=== PATIENT | female | born 1960 | race Caucasian/White ===

== ENCOUNTER → 2020-07-24 | Outpatient (CLI) | payer BC | LOC: KOH-I 08:00 | DX: N20.2 Calculus of kidney with calculus of ureter (principal); R10.813 Right lower quadrant abdominal tenderness; Z88.1 Allergy status to other antibiotic agents | CPT/HCPCS: 74176 ==

== ENCOUNTER → 2021-05-05 | Outpatient (CLI) | payer BC, OTHER | LOC: KOH-I 16:18 | DX: R10.11 Right upper quadrant pain (principal); N20.0 Calculus of kidney | CPT/HCPCS: 74176 ==

== ENCOUNTER → 2021-08-13 | Outpatient (CLI) | payer BC, OTHER | LOC: KOH-I 09:13 | DX: R10.11 Right upper quadrant pain (principal); N20.0 Calculus of kidney | CPT/HCPCS: 74176 ==